=== PATIENT | female | born 1980 | race Caucasian/White ===

== ENCOUNTER 2016-08-18 20:19 | Emergency (ER) | payer SELFPAY ==
[2016-08-18] MEDS ORDERED: IBUPROFEN 600 MG TABLET PO ONE (20:45)
--- NOTE | 2016-08-18 20:45 | ER Document Report ---
ED Medical Screen (RME) - General Stated Complaint: FALL/BACK PAIN Time seen by provider: 20:42 Mode of Arrival: Ambulatory Information source: Patient Notes: 35-year-old female presents to ED for thoracic back pain after falling down steps while moving. During boxes all day. States she has tried hot bath and Motrin with no relief. I have greeted and performed a rapid initial assessment of this patient. A comprehensive ED assessment and evaluation of the patient, analysis of test results and completion of medical decision making process will be conducted by an additional ED providers. Physical Exam - Vital signs Vitals: Temp Pulse Resp BP Pulse Ox 98.9 F 94 18 117/80 96 08/18/16 20:36 08/18/16 20:36 08/18/16 20:36 08/18/16 20:36 08/18/16 20:36 Course - Vital Signs Vital signs: Temp Pulse Resp BP Pulse Ox 98.9 F 94 18 117/80 96 08/18/16 20:36 08/18/16 20:36 08/18/16 20:36 08/18/16 20:36 08/18/16 20:36
[2016-08-18 21:59] VITALS: BP 103/50
--- NOTE | 2016-08-18 22:02 | ER Document Report ---
ED Fall - General Chief Complaint: Back Pain Stated Complaint: FALL/BACK PAIN Time seen by provider: 21:59 Mode of Arrival: Ambulatory Information source: Patient Notes: This is a 35-year-old female that presents today with right paraspinal thoracic back pain and right shoulder pain. She states that she was helping her sister move into her new apartment, fever while she was climbing up the stairs carrying a box she fell backwards. She fell down approximately 15 stairs. Denies hitting her head loss of consciousness or vomiting after the event. She does not take any blood thinners. Constant 8 out of 10 pain described as tight. She has tried warm soaks with minimal relief. Denies all other pain. TRAVEL OUTSIDE OF THE [place] IN LAST 30 DAYS: No - Related data Allergies/Adverse Reactions: Penicillins Allergy (Verified 08/18/16 21:53) tramadol [From Ultram] Adverse Reaction (Verified 08/18/16 21:53) Past Medical History - General Information source: Patient - Social History Smoking Status: Current Every Day Smoker Cigarette use (# per day): No Chew tobacco use (# tins/day): No Frequency of alcohol use: None Drug Abuse: None Family History: Reviewed & Not Pertinent Patient has suicidal ideation: No Patient has homicidal ideation: No Renal/ Medical History: Denies: Hx Peritoneal Dialysis Surgical Hx: Negative - Immunizations Hx Diphtheria, Pertussis, Tetanus Vaccination: Yes Review of Systems - Review of Systems Constitutional: No symptoms reported. denies: Chills, Fever EENT: No symptoms reported Cardiovascular: No symptoms reported Respiratory: No symptoms reported. denies: Cough, Hurts to breathe Gastrointestinal: No symptoms reported. denies: Abdominal pain Genitourinary: No symptoms reported Female Genitourinary: No symptoms reported Musculoskeletal: See HPI, Back pain - Mid thoracic right paraspinal area. Medial right scapular area Skin: No symptoms reported Hematologic/Lymphatic: No symptoms reported Neurological/Psychological: No symptoms reported Physical Exam - Vital signs Vitals: Temp Pulse Resp BP Pulse Ox 98.9 F 94 18 117/80 96 08/18/16 20:36 08/18/16 20:36 08/18/16 20:36 08/18/16 20:36 08/18/16 20:36 - General General appearance: Appears well, Alert In distress: None - HEENT Head: Normocephalic, Atraumatic Eyes: Normal Conjunctiva: Normal - Respiratory Respiratory status: No respiratory distress Chest status: Nontender Breath sounds: Normal. No: Rales, Rhonchi, Stridor, Wheezing - Cardiovascular Rhythm: Regular Heart sounds: Normal auscultation - Abdominal Bowel sounds: Normal Tenderness: Nontender - Back Back: Tender - Tender right paraspinal mid thoracic area to moderate palpation. Tender medial scapular pain to moderate palpation. No gross deformities noted.. No: Deformity/step-off - Extremities General upper extremity: Normal inspection, Tender - Right medial scapula to moderate palpation, Normal strength - Patient had good range of motion and strength of the upper extremity bilaterally, Normal temperature General lower extremity: Normal inspection, Nontender, Normal strength - Patient had good range of motion and strength to the lower extremity bilaterally , Normal temperature Shoulder: Tender - Medial scapula - Neurological Cognition: Normal. No: Confused - Psychological Associated symptoms: Normal affect, Normal mood - Skin Skin Temperature: Warm Skin Moisture: Dry Skin Color: Normal Course - Re-evaluation Re-evalutation: 08/18/16 22:06 Radiograph image results was shared with the patient. She was given multiple opportunities to ask questions. She had normal sensation to the upper extremity bilaterally and range of motion as well as strength. Patient had no focal neurologic deficits. She had no gross deformity on examination. Patient had good range of motion and strength of the lower extremities bilaterally. Patient was advised to follow-up with primary care physician as soon as possible. - Vital Signs Vital signs: Temp Pulse Resp BP Pulse Ox 98.6 F 77 18 103/50 L 97 08/18/16 21:58 08/18/16 21:58 08/18/16 20:36 08/18/16 21:58 08/18/16 21:58 Discharge - Discharge Clinical Impression: Pain of right scapula Thoracic back pain Qualifiers: Chronicity: acute Back pain laterality: right Qualified Code(s): M54.6 - Pain in thoracic spine Condition: Stable Disposition: HOME, SELF-CARE Instructions: Muscle Strain ([facility]), Warm Packs ([facility]) Additional Instructions: Return to the emergency department if symptoms worsen such as loss of motor function, loss of sensation to any extremity, etc. Follow-up with primary care physician as soon as possible. Prescriptions: Methocarbamol [Robaxin 750 mg Tablet] 750 mg PO Q6 PRN #10 tablet PRN Reason: Referrals: [facility] [Provider Group] - Follow up tomorrow
== END 2016-08-18 22:24 | disposition home or self-care (01) ==
LOC: ER 20:19
DX: M54.6 Pain in thoracic spine (principal); M89.8X1 Other specified disorders of bone, shoulder; M25.511 Pain in right shoulder; W10.9XXA Fall (on) (from) unspecified stairs and steps, initial encounter; Z88.0 Allergy status to penicillin; F17.200 Nicotine dependence, unspecified, uncomplicated
CPT/HCPCS: 72070; 99283

== ENCOUNTER 2018-04-21 21:40 | Emergency (ER) | payer SELFPAY ==
[2018-04-21 22:11] VITALS: BP 131/87
--- NOTE | 2018-04-22 00:12 | ER Document Report ---
ED Medical Screen (RME) - General Chief Complaint: Abscess Stated Complaint: ABSCESS ON ARM Time Seen by Provider: 04/22/18 00:09 Mode of Arrival: Ambulatory Information source: Patient Notes: Patient is a 37-year-old female who presents with chief complaint of abscess on her right upper forearm. Patient reports that she was injecting cocaine approximately 1 week ago which is when the pain and swelling started. 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 Exam: Large erythematous area noted to right upper forearm with area of induration and fluctuance. I have greeted and performed a rapid initial assessment of this patient. A comprehensive ED assessment and evaluation of the patient, analysis of test results and completion of the medical decision making process will be conducted by additional ED providers. Dictation of this chart was performed using voice recognition software; therefore, there may be some unintended grammatical errors. TRAVEL OUTSIDE OF THE [place] IN LAST 30 DAYS: No - Related Data Allergies/Adverse Reactions: Penicillins Allergy (Verified 04/21/18 22:05) tramadol [From [facility]] Adverse Reaction (Verified 04/21/18 22:05) Past Medical History Renal/ Medical History: Denies: Hx Peritoneal Dialysis - Immunizations Hx Diphtheria, Pertussis, Tetanus Vaccination: Yes Physical Exam - Vital signs Vitals: Temp Pulse Resp BP Pulse Ox 98.6 F 94 18 131/87 H 99 04/21/18 22:04/21/18 22:04/21/18 22:04/21/18 22:04/21/18 22:09 Course - Vital Signs Vital signs: Temp Pulse Resp BP Pulse Ox 98.6 F 94 18 131/87 H 99 04/21/18 22:04/21/18 22:04/21/18 22:04/21/18 22:04/21/18 22:09
== END 2018-04-22 02:26 | disposition left against medical advice (07) ==
LOC: ER 21:40
DX: L02.413 Cutaneous abscess of right upper limb (principal); Z53.20 Procedure and treatment not carried out because of patient's decision for unspecified reasons; Z86.14 Personal history of Methicillin resistant Staphylococcus aureus infection; Z88.0 Allergy status to penicillin
CPT/HCPCS: 99281